=== PATIENT | female | born 1960 | race Caucasian/White ===

== ENCOUNTER 2022-03-04 06:29 | Day surgery (SDC) | payer BC ==
[2022-02-27 10:20] VITALS: BMI 25.0
[2022-03-04] MEDS ORDERED: Lidocaine 2% PF 5 ML VIAL ONE (08:38)
[2022-03-04] MEDS ORDERED: Fentanyl 100 MCG/2 ML VIAL ONE ×2 (08:38→10:10)
[2022-03-04] MEDS ORDERED: Dexamethasone 20 MG/5 ML VIAL ONE (08:38)
[2022-03-04] MEDS ORDERED: PROPOFOL 20 ML ONE (08:38)
[2022-03-04] MEDS ORDERED: Ondansetron PF 4 MG/2 ML Vial ONE (08:38)
[2022-03-04] MEDS ORDERED: Midazolam HCl 2 mg/2 ml Vial ONE (08:38)
[2022-03-04] MEDS ORDERED: CEFAZOLIN 1 GM VIAL ONE (08:49)
[2022-03-04] MEDS ORDERED: Lidocaine 1% w/Epinephrine 1:100K 20 ML VIAL ONE (09:14)
[2022-03-04] MEDS ORDERED: HYDROcodone/Acetaminophen 5/325 mg Tablet ONE (10:43)
== END 2022-03-04 11:25 | disposition home or self-care (01) ==
LOC: CSHSDC 06:29
PROVIDERS: ATTEND Otolaryngology Otolaryngic Allergy
PROC: 0W960ZZ Drainage of Neck, Open Approach (ICD-10-PCS; principal; 2022-03-04)
DX: K11.6 Mucocele of salivary gland (principal); H90.3 Sensorineural hearing loss, bilateral; I10 Essential (primary) hypertension; E03.9 Hypothyroidism, unspecified; Z79.899 Other long term (current) drug therapy; Z91.040 Latex allergy status; Z88.8 Allergy status to other drugs, medicaments and biological substances; Z90.710 Acquired absence of both cervix and uterus; Z98.890 Other specified postprocedural states
CPT/HCPCS: 88184; 88305; J0690; J1100; J2001; J2250; J2405; J2704; J3010